=== PATIENT | female | born 1990 | race Caucasian/White ===

== ENCOUNTER → 2017-05-24 | Outpatient (CLI) | payer OTHER | END | disposition home or self-care (01) | LOC: SUSANVILLE 13:00 | PROVIDERS: ATTEND Internal Medicine Cardiovascular Disease | DX: R00.2 Palpitations (principal) | CPT/HCPCS: 93306 ==

== ENCOUNTER → 2017-05-26 | Outpatient (CLI) | payer OTHER | END | disposition home or self-care (01) | LOC: CARD 10:26 | PROVIDERS: ATTEND Internal Medicine Cardiovascular Disease | DX: R07.89 Other chest pain (principal) | CPT/HCPCS: 93017 ==

== ENCOUNTER → 2020-07-03 | Outpatient (CLI) | payer BC | END | disposition home or self-care (01) | LOC: CVU 07:18 | PROVIDERS: ATTEND Nurse Practitioner Family | DX: R07.89 Other chest pain (principal) | CPT/HCPCS: 93306; 93356 ==

== ENCOUNTER 2020-08-07 04:41 | Inpatient (IN) | payer BC ==
[~2020-08-07] VITALS: Ht 175.3 cm; Wt 100.9 kg
[2020-08-07] MEDS ORDERED: NEWBORN KIT ONE (05:29)
[2020-08-07] MEDS ORDERED: MISOPROSTOL 200 MCG TABLET ONE (05:29)
[2020-08-07] MEDS ORDERED: LIDOCAINE 1%, 20ML ONE (05:29)
[2020-08-07] MEDS ORDERED: OXYTOCIN 30U/ 0.9% NaCL 500ML 500 ML ONE (05:29)
[2020-08-07] MEDS ORDERED: TERBUTALINE 1 MG/ML, 1ML SQ PRN (05:30)
[2020-08-07] MEDS ORDERED: TERBUTALINE 1 MG/ML, 1ML IVPush PRN (05:30)
[2020-08-07] MEDS ORDERED: ONDANSETRON 2MG/ML, 2ML IVPush PRN (05:30)
[2020-08-07] MEDS ORDERED: OXYTOCIN 30U/ 0.9% NaCL 500ML 500 ML IV ONE (05:30)
[2020-08-07] MEDS ORDERED: FENTANYL PF 100 MCG/2ML IV PRN (05:30)
[2020-08-07] MEDS ORDERED: FENTANYL PF 100 MCG/2ML IVPush PRN (05:30)
[2020-08-07] MEDS ORDERED: PLEASE ENTER ALLERGIES MC SCH (06:00)
[2020-08-07 06:02] LABS: BASOPHILS % (AUTO) 1 % (0-1); EOSINOPHILS % (AUTO) 0 % (1-7); LYMPHOCYTES % (AUTO) 17 % (22-44); MEAN CORPUSCULAR HEMOGLOBIN 28.1 pg (27.0-34.8); MEAN CORPUSCULAR HGB CONC 32.6 g/dL (32.4-35.8); MONOCYTES % (AUTO) 7 % (2-9); NEUTROPHILS % (AUTO) 75 % (42-75); PLATELET COUNT 196 x10^3/uL (130-400); RED BLOOD COUNT 4.15 x10^6/uL (3.82-5.3)
[2020-08-07 06:03] LABS: MD NO
[2020-08-07] MEDS ORDERED: OXYTOCIN 30U/ 0.9% NaCL 500ML 500 ML IV PRN (07:00)
[2020-08-07] MEDS: LACTATED RINGERS 1,000 ML IV SCH ×2 (07:30→12:59)
[2020-08-07] MEDS ORDERED: LACTATED RINGERS 1,000 ML IVBOLUS PRN ×2 (18:30→19:30)
[2020-08-07] MEDS ORDERED: BUPIVACAINE 0.25% ONE (18:46)
[2020-08-07] MEDS ORDERED: FENTANYL/BUPIV./NS/PF 250 ML EPIDCONT ONE (18:47)
[2020-08-07] MEDS ORDERED: LACTATED RINGERS 1,000 ML IV SCH (19:30)
[2020-08-07] MEDS ORDERED: EPHEDRINE 50 MG/ML, 1ML IVPush PRN (19:30)
[2020-08-07] MEDS ORDERED: FENTANYL/BUPIV./NS/PF 250 ML EPIDCONT SCH (19:30)
[2020-08-08] MEDS ORDERED: FENTANYL PF 100 MCG/2ML ONE (04:53)
[2020-08-08] MEDS ORDERED: HYDROmorphone 2 MG/ML, 1ML ONE (04:53)
[2020-08-08] MEDS ORDERED: CEFAZOLIN 1,000 MG ONE (04:53)
[2020-08-08] MEDS ORDERED: OXYTOCIN 10 UNITS/ML, 1ML ONE (04:53)
[2020-08-08] MEDS ORDERED: ONDANSETRON 2MG/ML, 2ML ONE (04:53)
[2020-08-08] MEDS ORDERED: LIDOCAINE/MPF 2%-EPI 1:200K, 20 ML ONE (04:56)
[2020-08-08] MEDS ORDERED: KETOROLAC 30 MG/1 ML ONE (04:57)
[2020-08-08] MEDS ORDERED: METOCLOPRAMIDE 5 MG/ML, 2ML ONE (04:58)
[2020-08-08] MEDS ORDERED: SODIUM CITRATE/CITRIC ACID 15 ML UDC ONE (04:58)
[2020-08-08] MEDS ORDERED: AZITHROMYCIN 500 MG in SODIUM CHLORIDE 0.9% 250 ML IV ONE (05:00)
[2020-08-08] MEDS ORDERED: MEPERIDINE/PF 50 MG/ML ONE (05:34)
[2020-08-08] MEDS ORDERED: OXYcodone/APAP 5/325MG TABLET ONE (06:11)
[2020-08-08] MEDS ORDERED: METOCLOPRAMIDE 5 MG/ML, 2ML IV PRN (06:30)
[2020-08-08] MEDS ORDERED: IBUPROFEN 800 MG TABLET PO PRN (06:30)
[2020-08-08] MEDS ORDERED: TRANEXAMIC ACID 1,000 MG in SODIUM CHLORIDE 0.9% 100 ML IVPB ONE (06:30)
[2020-08-08] MEDS: OXYTOCIN 30U/ 0.9% NaCL 500ML 500 ML IV SCH ×2 (06:30→16:30)
[2020-08-08] MEDS ORDERED: METHYLERGONOVINE 0.2 MG/ML IM PRN (06:30)
[2020-08-08] MEDS ORDERED: GLYCERIN ADULT SUPP PR PRN (06:30)
[2020-08-08] MEDS ORDERED: CARBOPROST TROMETHAMINE 250 MCG/ML, 1ML IM PRN (06:30)
[2020-08-08] MEDS ORDERED: MORPHINE SULFATE 4 MG/ML, 1ML IVPush PRN (06:30)
[2020-08-08] MEDS ORDERED: MISOPROSTOL 200 MCG TABLET PR PRN (06:30)
[2020-08-08] MEDS ORDERED: ONDANSETRON 2MG/ML, 2ML IV PRN (06:30)
[2020-08-08] MEDS ORDERED: OXYcodone IR 5MG TABLET PO PRN (06:30)
[2020-08-08] MEDS ORDERED: BISACODYL 10 MG SUPP PR PRN (06:30)
[2020-08-08] MEDS: LACTATED RINGERS 1,000 ML IV SCH ×8 (06:30→22:30)
[2020-08-08] MEDS ORDERED: ACETAMINOPHEN 325 MG TABLET PO PRN (06:30)
[2020-08-08] MEDS: KETOROLAC 30 MG/1 ML IM SCH ×2 (06:30→12:30)
[2020-08-08 07:54] VITALS: BP 120/76
[2020-08-08] MEDS: OXYcodone/APAP 5/325MG TABLET PO PRN ×2 (08:51→18:26)
[2020-08-08] MEDS: PRENATAL VIT/IRON/FA 1 EACH TABLET PO SCH (09:00)
[2020-08-08 11:21] VITALS: BP 113/74
[2020-08-08] MEDS: KETOROLAC 30 MG/1 ML IV SCH ×2 (12:14→18:24)
[2020-08-08 13:52] LABS: BASOPHILS % (AUTO) 1 % (0-1); EOSINOPHILS % (AUTO) 0 % (1-7); LYMPHOCYTES % (AUTO) 11 % (22-44); MEAN CORPUSCULAR HGB CONC 32.7 g/dL (32.4-35.8); MEAN PLATELET VOLUME 8.8 fL (7.4-10.4); MONOCYTES % (AUTO) 5 % (2-9); NEUTROPHILS % (AUTO) 84 % (42-75); PLATELET COUNT 172 x10^3/uL (130-400); RED BLOOD COUNT 3.72 x10^6/uL (3.82-5.3)
[2020-08-08 13:53] LABS: MD NO
[2020-08-08 16:00] VITALS: BP 111/77
[2020-08-08 20:28] VITALS: BP 91/63
[2020-08-09] MEDS: KETOROLAC 30 MG/1 ML IV SCH ×4 (00:21→21:40)
[2020-08-09] MEDS: OXYcodone/APAP 5/325MG TABLET PO PRN ×2 (00:21→12:22)
[2020-08-09 00:32] VITALS: BP 105/71
[2020-08-09] MEDS: LACTATED RINGERS 1,000 ML IV SCH ×5 (02:30→12:30)
[2020-08-09] MEDS: OXYTOCIN 30U/ 0.9% NaCL 500ML 500 ML IV SCH ×2 (02:30→12:30)
[2020-08-09 04:13] VITALS: BP 94/59
[2020-08-09] MEDS: DOCUSATE 100 MG CAPSULE PO PRN ×2 (08:29→21:40)
[2020-08-09 08:30] VITALS: BP 110/71
[2020-08-09] MEDS: PRENATAL VIT/IRON/FA 1 EACH TABLET PO SCH (08:30)
[2020-08-09] MEDS: SIMETHICONE 80 MG CHEW TAB PO PRN (12:24)
[2020-08-09] MEDS ORDERED: OXYcodone IR 5MG TABLET PO PRN (15:00)
[2020-08-09] MEDS: ACETAMINOPHEN 325 MG TABLET PO PRN ×2 (16:36→21:39)
[2020-08-09 20:00] VITALS: BP 109/70
[2020-08-09 21:40] VITALS: BP 104/64
[2020-08-10] MEDS: KETOROLAC 30 MG/1 ML IV SCH ×2 (04:07→10:51)
[2020-08-10] MEDS: ACETAMINOPHEN 325 MG TABLET PO PRN ×4 (04:07→22:11)
[2020-08-10 07:57] VITALS: BP 127/75
[2020-08-10] MEDS: DOCUSATE 100 MG CAPSULE PO PRN ×2 (10:51→22:11)
[2020-08-10] MEDS: PRENATAL VIT/IRON/FA 1 EACH TABLET PO SCH (10:51)
[2020-08-10] MEDS: IBUPROFEN 600 MG TABLET PO PRN ×2 (16:55→22:52)
[2020-08-10 19:30] VITALS: BP 116/76
[2020-08-10] MEDS: SIMETHICONE 80 MG CHEW TAB PO PRN (22:11)
[2020-08-11] MEDS: ACETAMINOPHEN 325 MG TABLET PO PRN ×4 (02:31→15:16)
[2020-08-11] MEDS: IBUPROFEN 600 MG TABLET PO PRN ×2 (04:48→10:49)
[2020-08-11] MEDS: DOCUSATE 100 MG CAPSULE PO PRN (07:38)
[2020-08-11] MEDS: PRENATAL VIT/IRON/FA 1 EACH TABLET PO SCH (07:38)
[2020-08-11] MEDS: SIMETHICONE 80 MG CHEW TAB PO PRN (07:38)
[2020-08-11 07:45] VITALS: BP 120/78
[2020-08-11] MEDS ORDERED: ACET650S21 PO (10:01)
[2020-08-11] MEDS ORDERED: ACET325C6 PO (10:04)
[2020-08-11] MEDS ORDERED: OXYC5CAP2 PO (10:05)
[2020-08-11] MEDS ORDERED: IBUP-1223 PO (10:06)
[2020-08-11] MEDS ORDERED: DOCU-131 PO (10:06)
[2020-08-11] MEDS ORDERED: MEASLES,MUMPS&RUBELLA VACC/PF 0.5 ML SQ-VACC PRN (12:30)
== END 2020-08-11 15:25 | disposition home or self-care (01) | DRG 788 ==
LOC: LDOP 04:41 → LDIP 05:35 → 2NW 08-08 07:42
PROVIDERS: ADMIT Obstetrics & Gynecology Maternal & Fetal Medicine; ATTEND Obstetrics & Gynecology Maternal & Fetal Medicine
PROC: 10D00Z1 Extraction of Products of Conception, Low, Open Approach (ICD-10-PCS; principal; 2020-08-08)
DX: O42.92 Full-term premature rupture of membranes, unspecified as to length of time between rupture and onset of labor (principal); Z20.822 Contact with and (suspected) exposure to COVID-19; Z3A.39 39 weeks gestation of pregnancy; Z37.0 Single live birth; Z88.2 Allergy status to sulfonamides; Z88.8 Allergy status to other drugs, medicaments and biological substances
CPT/HCPCS: 36415; 84112; 85025; 86592; 86850; 86900; 87635; 90707; G0378; J0456; J0690; J1170; J1885; J2175; J2405; J3010; J2590; J2765; J7050; J7120